=== PATIENT | male | born 1990 | race Caucasian/White ===

== ENCOUNTER 2016-08-31 19:35 | Emergency (ER) | payer OTHER ==
[~2016-08-31] VITALS: Ht 172.7 cm; Wt 68.2 kg
[2016-08-31 19:48] VITALS: BP 110/51; PULSE 68; TEMP 98.7
== END 2016-08-31 21:46 | disposition home or self-care (01) ==
LOC: COL.ER 19:35
DX: S01.21XA Laceration without foreign body of nose, initial encounter (principal); W51.XXXA Accidental striking against or bumped into by another person, initial encounter; Y92.322 Soccer field as the place of occurrence of the external cause